=== PATIENT | female | born 1965 | race Caucasian/White ===

== ENCOUNTER 2017-05-29 10:11 | Day surgery (SDC) | payer OTHER ==
[2017-05-29] MEDS ORDERED: PROPOFOL 10 MG/ML EMU IV ONE (11:11)
[2017-05-29] MEDS ORDERED: MIDAZOLAM 2 MG/2 ML SOL ONE (11:11)
[2017-05-29] MEDS ORDERED: FENTANYL 100MCG/2ML SOL ONE ×2 (11:12→11:57)
[2017-05-29] MEDS ORDERED: CEFAZOLIN SODIUM 1 GM PDS ONE (11:12)
[2017-05-29] MEDS ORDERED: LIDOCAINE HCL 1% MPF SOL ONE (11:13)
[2017-05-29] MEDS ORDERED: KETOROLAC TROMETHAMINE 30 MG/ML SOL ONE (12:54)
[2017-05-29 13:27] VITALS: BP 143/83; PULSE 69; RESP 18; TEMP 97.6; O2SAT 98
[2017-05-29] MEDS ORDERED: MORPHINE SULFATE 10 MG/ML SOL ONE (13:49)
== END 2017-05-29 14:35 | disposition home or self-care (01) | DRG 563 ==
LOC: SURG 10:11
PROVIDERS: ATTEND Orthopaedic Surgery
DX: S83.242A Other tear of medial meniscus, current injury, left knee, initial encounter (principal); M94.262 Chondromalacia, left knee
CPT/HCPCS: 29881; G0289; J0690; J1885; J2250; J2270; J3010; J2001; J2704